=== PATIENT | male | born 1975 | race Caucasian/White ===

== ENCOUNTER → 2020-10-20 15:31 | Outpatient (CLI) | payer BC, SELFPAY ==
--- NOTE | ~2020-10-20 | CT_ITS ---
EXAMINATION: CT sinus wo con DATE: 10/20/2020 15:59 INDICATION: Chronic sinusitis. Right upper teeth pain TECHNIQUE: Computed tomography (CT) of the paranasal sinuses was performed without contrast. Iterativ e reconstruction technique was employed. Exam dose: 295.05 mGy-cm total exam DLP. COMPARISON: None FINDINGS: There is a chronic large soft tissue mass or complicated cystic lesion. 2.1 x centimeters w idth and 2.7 cm anteroposterior dimension and approximately 3.1 cm vertical dimension at the base of the right upper molars, outwardly expanding and eroding through the lateral wall of the right maxilla , projecting superiorly into the right maxillary sinus. There is adjacent mucoperiosteal thickening of the lower right maxillary sinus. There is a small mucus retention cyst at the upper lateral wall of the right sphenoid sinus. The para nasal sinuses otherwise are normally developed and aerated. The mastoid air cells are normally developed and aerated. There is rightward deviation of the nasal septum. There is mild intralamellar cell of both middle bee al turbinates. Nasal turbinates are symmetric in size. The ostiomeatal units are patent. 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 Oral or maxillofacial surgical consultation is recommended. Mild intralamellar cell of both middle nasal turbinates Rightward deviation of nasal septum There is mucoperiosteal thickening in the right lower maxillary sinus and a small mucus retention cys t in the superolateral right sphenoid sinus Reviewed, dictated and finalized at [facility]. Reviewed, dictated and finalized at [facility]. 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 Oral or maxillofacial surgical consulta tion is recommended. Mild intralamellar cell of both middle nasal turbinates Rightward deviation of nasal septum There is mucoperiosteal thickening in the right lower maxillary sinus and a sma ll mucus retention cyst in the superolateral right sphenoid sinus
== END ==
PROVIDERS: Visit Provider Otolaryngology
DX: J32.8 Other chronic sinusitis (principal); J34.2 Deviated nasal septum
CPT/HCPCS: 70486